=== PATIENT | male | born 1960 | race Caucasian/White ===

== ENCOUNTER 2017-08-07 13:32 | Emergency (ER) | payer OTHER ==
--- NOTE | 2017-08-07 14:06 | ERPHSYRPT ---
- History of Present Illness Time Seen by Provider: 08/07/17 13:56 Source: patient Exam Limitations: no limitations Patient Subjective Stated Complaint: Pt states "I cannot pee, I cannot poop. I realy hurt." Triage Nursing Assessment: Pt alert and oriented X 3, skin pwd Pt ambulates with a slow gait, able to speak in clear full sentences. PT abdomen is firm lower two quadrants, tender to touch. Physician History: This is a 57-year-old white male arrives with complaint of abdominal distention suprapubic pain symptoms for 1-1/2 days. He states he's been unable to urinate for one and a half days he thought he might be constipated because he could not urinate. He has no nausea no vomiting. Past medical history includes high blood pressure, enlarged prostate. Past surgical history includes hernia repair orthopedic surgery (anterior cruciate ligament reconstruction on the right and left ankle surgery. social history 3 beers a day no tobacco no drugs) Timing/Duration: today Severity: moderate Modifying Factors: Improves With: other (unable to urinate for one and a half days) Associated Symptoms: abdominal pain (suprapubic abdominal pain), No nausea, No vomiting, No shortness of breath, No heartburn, No diaphoresis, No cough, No chills, No chest pain, No fever, No headaches, No loss of appetite, No malaise, No rash, No syncope, No seizure, No weakness Allergies/Adverse Reactions: No Known Drug Allergies Allergy (Unverified 08/21/14 03:29) Home Medications: Finasteride 5 mg [Proscar 5 MG] 5 mg PO DAILY 11/11/12 [History] Hx Tetanus, Diphtheria Vaccination/Date Given: Yes Hx Influenza Vaccination/Date Given: No Hx Pneumococcal Vaccination/Date Given: No Immunizations Up to Date: Yes - Review of Systems Constitutional: No Fever, No Chills Eyes: No Symptoms Ears, Nose, & Throat: No Symptoms Respiratory: No Cough, No Dyspnea Cardiac: No Chest Pain, No Edema, No Syncope Abdominal/Gastrointestinal: Abdominal Pain (suprapubic abdominal pain), Constipation, No Nausea, No Vomiting, No Diarrhea, No Hematemesis, No Hematochezia, No Melena, No Dysphagia, No Appetite Changes Genitourinary Symptoms: Urinary Retention, No Frequency, No Hematuria, No Hesitancy, No Incontinence, No Urgency, No Flank Pain, No Testicle Pain, No Penile Discharge Musculoskeletal: No Back Pain, No Neck Pain Skin: No Rash Neurological: No Dizziness, No Focal Weakness, No Sensory Changes Psychological: No Symptoms Endocrine: No Symptoms All Other Systems: Reviewed and Negative - Past Medical History Pertinent Past Medical History: Yes Cardiac History: Hypertension Musculoskeletal History: Arthritis History: Other Psycho-Social History: Other Male Reproductive Disorders: Prostate Problems Other Medical History: ENLARGED PROSTATE - Past Surgical History Past Surgical History: Yes Gastrointestinal: Hernia Repair Musculoskeletal: Orthopedic Surgery - Social History Smoking Status: Never smoker Exposure to second hand smoke: Yes Drug Use: none Patient Lives Alone: Yes - Nursing Vital Signs Nursing Vital Signs: Initial Vital Signs Temperature 98.6 F 08/07/17 13:38 Pulse Rate 94 H 08/07/17 13:38 Respiratory Rate 16 08/07/17 13:38 Blood Pressure 154/86 08/07/17 13:38 O2 Sat by Pulse Oximetry 100 08/07/17 13:38 Pain Scale Pain Intensity 6 - Physical Exam General Appearance: moderate distress (arrives in moderate distress markedly improved and pain free after Almaraz placed) Eye Exam: PERRL/EOMI, eyes nml inspection Ears, Nose, Throat Exam: normal ENT inspection, TMs normal, pharynx normal, moist mucous membranes Neck Exam: normal inspection Respiratory Exam: normal breath sounds, lungs clear, No respiratory distress Cardiovascular Exam: regular rate/rhythm, normal heart sounds, normal peripheral pulses Gastrointestinal/Abdomen Exam: other (abdomen initially firm tender suprapubic region,soft, nontender nondistended positive bowel sounds after Alamraz placed) Back Exam: normal inspection, normal range of motion, No CVA tenderness, No vertebral tenderness Extremity Exam: normal inspection, normal range of motion, pelvis stable Neurologic Exam: alert, oriented x 3, cooperative, 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 tested, normal mood/affect, nml cerebellar function, nml station & gait, sensation nml, No motor deficits Skin Exam: normal color, warm, dry, No rash Lymphatic Exam: No adenopathy SpO2 Interpretation: normal (100%) SpO2: 100 Oxygen Delivery: Room Air - Course Nursing assessment & vital signs reviewed: Yes Ordered Tests: Active Orders 24 hr Category Date Time Status Almaraz [Catheter-[place] Almaraz] STAT Care 08/07/17 13:56 Active UA W/ MICROSCOPIC Stat Lab 08/07/17 14:00 Completed Lab/Rad Data: Laboratory Results 08/07/17 Range/Units 14:00 Ur Collection Type VOID Urine Color YELLOW (YELLOW) Urine Appearance CLEAR (CLEAR) Urine pH 5.0 (5-6) Ur Specific [place] 1.015 (1.005-1.025) Urine Protein NEGATIVE (Negative) Urine Ketones NEGATIVE (NEGATIVE) Urine Blood 50 (0-5) Crescencio/ul Urine Nitrite NEGATIVE (NEGATIVE) Urine Bilirubin NEGATIVE (NEGATIVE) Urine Urobilinogen NORMAL (0-1) mg/dL Ur Leukocyte Esterase NEGATIVE (NEGATIVE) Urine Microscopic RBC 10-15 (0-2) /HPF Ur Epithelial Cells FEW (FEW) /HPF Urine Bacteria RARE (NEGATIVE) /HPF Urine Mucus SLIGHT (NEGATIVE) /HPF Urine Culture Reflexed NO (NO) Urine Glucose NEGATIVE (NEGATIVE) mg/dL Specimen Received 08/07/17 1400 - Progress Progress: improved Progress Note: 08/07/17 14:05 57-year-old white male arrives with complaint of unable to urinate for one and a half days he arrives with complaint of suprapubic tenderness, abdomen is mildly firm on arrival and in moderate distress Almaraz was placed and patient immediately with relief now feeling markedly improved Almaraz drained out 1 L on placement. Patient has had a history of urinary retention he is due to see Dr. Iraheta on Tuesday, August 10. Will send off a urinalysis. Anticipate release with leg bag follow-up with Dr. Iraheta. 08/07/17 14:18 Will discharge patient patient doing well. - Departure Time of Disposition: 14:18 Departure Disposition: Home Clinical Impression: Suprapubic abdominal pain, Urinary (tract) obstruction Condition: Fair Critical Care Time: No Referrals: ANA GODFREY MD [Primary Care Provider] - Additional Instructions: Return home. Follow-up with Dr. Iraheta or your family doctor. Return for acute distress or for severe symptoms.
[2017-08-07 14:14] LABS: Appearance CLEAR (CLEAR); Bilirubin NEGATIVE (NEGATIVE); Blood 50 Ery/ul (0-5); Glucose NEGATIVE (NEGATIVE); Ketones NEGATIVE (NEGATIVE); Leukocyte Esterase NEGATIVE (NEGATIVE); Nitrite NEGATIVE (NEGATIVE); Protein,Urine Dip NEGATIVE (Negative); Specific Gravity 1.015 (1.005-1.025); Urobilinogen NORMAL mg/dL (0-1)
[2017-08-07 14:15] LABS: Bacteria RARE /HPF (NEGATIVE); Epithelial Cells FEW /HPF (FEW); Mucus SLIGHT /HPF (NEGATIVE)
[2017-08-07 14:28] VITALS: BP 128/78; PULSE 72; O2SAT 98
== END 2017-08-07 14:41 | disposition home or self-care (01) ==
LOC: ED 13:32
DX: R10.9 Unspecified abdominal pain (principal); N13.9 Obstructive and reflux uropathy, unspecified
CPT/HCPCS: 51702; 81000; 99284

== ENCOUNTER 2017-08-26 14:01 | Emergency (ER) | payer OTHER ==
[2017-08-26 14:13] VITALS: BP 147/87; PULSE 87; O2SAT 99
--- NOTE | 2017-08-26 14:32 | ERPHSYRPT ---
- History of Present Illness Time Seen by Provider: 08/26/17 14:18 Source: patient Exam Limitations: no limitations Patient Subjective Stated Complaint: Urinary retention Triage Nursing Assessment: Pt presents to the ED with complaints of urinary retention beginning today. Pt states hx of complaint. Pt states last saw urology approximately 2 weeks ago for similar complaint. Pt able to urinate on arrival, approximately 50mL output. No distress noted at this time, skin PWD. Physician History: The patient is a 57-year-old male complaining of difficulty urinating today. He feels like his bladder is full but only dribbles. He's had this kind of problem intermittently for several years. 3 weeks ago he came to the ER and had a catheter placed. He was placed for the same reason is today. The catheter was removed within a few days and he was alright until today. He hasn' t seen his urologist yet. He denies fever or chills. His past medical history is significant for BPH. Timing/Duration: today Activites at Onset: none Quality: pressure Onset Location: suprapubic Pain Radiation: none Severity of Pain-Max: moderate Severity of Pain-Current: moderate Modifying Factors: Improves With: urinating Associated Symptoms: other (urinary retention) Sexual intercourse history: non-contributory Allergies/Adverse Reactions: No Known Drug Allergies Allergy (Verified 08/26/17 14:14) Home Medications: Finasteride 5 mg [Proscar 5 MG] 5 mg PO DAILY 11/11/12 [History] Hx Tetanus, Diphtheria Vaccination/Date Given: Yes Hx Influenza Vaccination/Date Given: No Hx Pneumococcal Vaccination/Date Given: No Immunizations Up to Date: No - Past Medical History Pertinent Past Medical History: Yes Cardiac History: Hypertension Musculoskeletal History: Arthritis History: Other Psycho-Social History: Other Male Reproductive Disorders: Prostate Problems Other Medical History: ENLARGED PROSTATE - Past Surgical History Past Surgical History: Yes Gastrointestinal: Hernia Repair Musculoskeletal: Orthopedic Surgery - Social History Smoking Status: Never smoker Exposure to second hand smoke: No Drug Use: none Patient Lives Alone: No - Review of Systems Constitutional: No Fever, No Chills Eyes: No Symptoms Ears, Nose, & Throat: No Symptoms Respiratory: No Cough, No Dyspnea Cardiac: No Chest Pain, No Edema, No Syncope Abdominal/Gastrointestinal: Abdominal Pain (suprapubic) Genitourinary Symptoms: Hesitancy, Urinary Retention Musculoskeletal: No Back Pain, No Neck Pain Skin: No Rash Neurological: No Dizziness, No Focal Weakness, No Sensory Changes Psychological: No Symptoms Endocrine: No Symptoms Hematologic/Lymphatic: No Symptoms Immunological/Allergic: No Symptoms All Other Systems: Reviewed and Negative - Nursing Vital Signs Nursing Vital Signs: Initial Vital Signs Temperature 97.7 F 08/26/17 14:10 Pulse Rate 87 08/26/17 14:10 Respiratory Rate 16 08/26/17 14:10 Blood Pressure 147/87 08/26/17 14:10 O2 Sat by Pulse Oximetry 99 08/26/17 14:10 Pain Scale Pain Intensity 4 - Physical Exam General Appearance: no apparent distress, alert Eye Exam: PERRL/EOMI Ears, Nose, Throat Exam: pharynx normal, moist mucous membranes Neck Exam: normal inspection, supple Respiratory Exam: normal breath sounds, lungs clear Cardiovascular Exam: regular rate/rhythm, No edema Gastrointestinal/Abdomen Exam: tenderness (mild suprapubic tenderness ) Rectal Exam: not done Back Exam: normal inspection, No CVA tenderness Extremity Exam: normal inspection, normal range of motion, No pedal edema Neurologic Exam: alert, oriented x 3, cooperative, sensation nml, No motor deficits Skin Exam: normal color, warm, dry, No rash SpO2 Interpretation: normal SpO2: 99 Oxygen Delivery: Room Air Ordered Tests: Active Orders 24 hr Category Date Time Status Almaraz [Catheter-[place] Almaraz] STAT Care 08/26/17 15:01 Ordered UA W/RFX UR CULTURE Stat Lab 08/26/17 Completed Lab/Rad Data: Laboratory Results 08/26/17 Range/Units Unknown Ur Collection Type CCMS Urine Color YELLOW (YELLOW) Urine Appearance CLEAR (CLEAR) Urine pH 7.0 (5-6) Ur Specific [place] 1.010 (1.005-1.025) Urine Protein NEGATIVE (Negative) Urine Ketones NEGATIVE (NEGATIVE) Urine Blood NEGATIVE (0-5) Crescencio/ul Urine Nitrite NEGATIVE (NEGATIVE) Urine Bilirubin NEGATIVE (NEGATIVE) Urine Urobilinogen NORMAL (0-1) mg/dL Ur Leukocyte Esterase NEGATIVE (NEGATIVE) Urine Culture Reflexed NO (NO) Urine Glucose NEGATIVE (NEGATIVE) mg/dL Specimen Received 08-26-17 1455 - Progress Progress: improved Counseled pt/family regarding: lab results, diagnosis, need for follow-up - Departure Time of Disposition: 15:06 Departure Disposition: Home Clinical Impression: Urinary retention Condition: Stable Critical Care Time: No Referrals: ANA GODFREY MD [Primary Care Provider] - Additional Instructions: You have urinary retention. A Almaraz catheter was placed in the ER. Keep the Almaraz catheter in place until your urologist is seen.
[2017-08-26 14:56] LABS: Appearance CLEAR (CLEAR); Bilirubin NEGATIVE (NEGATIVE); Blood NEGATIVE Ery/ul (0-5); Glucose NEGATIVE (NEGATIVE); Ketones NEGATIVE (NEGATIVE); Leukocyte Esterase NEGATIVE (NEGATIVE); Nitrite NEGATIVE (NEGATIVE); Protein,Urine Dip NEGATIVE (Negative); Urobilinogen NORMAL mg/dL (0-1)
== END 2017-08-26 15:33 | disposition home or self-care (01) ==
LOC: ED 14:01
DX: R33.9 Retention of urine, unspecified (principal)
CPT/HCPCS: 51702; 81002; 99284

== ENCOUNTER 2018-08-06 07:09 | Emergency (ER) | payer BC, OTHER ==
[2018-08-06 07:25] VITALS: BP 181/96; PULSE 75; O2SAT 98
--- NOTE | 2018-08-06 07:26 | ERPHSYRPT ---
- History of Present Illness Time Seen by Provider: 08/06/18 07:22 Source: patient Exam Limitations: no limitations Physician History: unable to urinate till morning, no other complaints Timing/Duration: today Severity of Pain-Max: none Severity of Pain-Current: none Associated Symptoms: dysuria (dribbling), No nocturia, No polyuria Allergies/Adverse Reactions: No Known Drug Allergies Allergy (Verified 08/06/18 07:26) Home Medications: Finasteride 5 mg [Proscar 5 MG] 5 mg PO DAILY 11/11/12 [History] Hx Tetanus, Diphtheria Vaccination/Date Given: Yes Hx Influenza Vaccination/Date Given: No Hx Pneumococcal Vaccination/Date Given: No - Past Medical History Pertinent Past Medical History: Yes Cardiac History: Hypertension Musculoskeletal History: Arthritis History: Other Psycho-Social History: Other Male Reproductive Disorders: Prostate Problems Other Medical History: ENLARGED PROSTATE - Past Surgical History Past Surgical History: Yes Gastrointestinal: Hernia Repair Musculoskeletal: Orthopedic Surgery - Social History Smoking Status: Never smoker Exposure to second hand smoke: No Drug Use: none Patient Lives Alone: No - Review of Systems Constitutional: No Symptoms Eyes: No Symptoms Ears, Nose, & Throat: No Symptoms Respiratory: No Symptoms Cardiac: No Symptoms Abdominal/Gastrointestinal: No Symptoms Genitourinary Symptoms: Dysuria, Hesitancy, Incontinence, Urgency - Nursing Vital Signs Nursing Vital Signs: Initial Vital Signs Temperature 98.2 F 08/06/18 07:19 Pulse Rate 75 08/06/18 07:19 Respiratory Rate 18 08/06/18 07:19 Blood Pressure 181/96 08/06/18 07:19 O2 Sat by Pulse Oximetry 98 08/06/18 07:19 Pain Scale Pain Intensity 3 - Physical Exam General Appearance: no apparent distress Eye Exam: PERRL/EOMI Ears, Nose, Throat Exam: normal ENT inspection Neck Exam: normal inspection Respiratory Exam: normal breath sounds Cardiovascular Exam: regular rate/rhythm Gastrointestinal/Abdomen Exam: soft Male Genital Exam: normal genitalia, No urethral discharge, No prostate tenderness Back Exam: normal inspection Extremity Exam: normal inspection - Course Nursing assessment & vital signs reviewed: Yes Lab/Rad Data: Laboratory Results 08/06/18 Range/Units 07:43 Urine Color YELLOW (YELLOW) Urine Appearance CLEAR (CLEAR) Urine pH 7.0 (5-6) Ur Specific [place] 1.010 (1.005-1.025) Urine Protein NEGATIVE (Negative) Urine Ketones NEGATIVE (NEGATIVE) Urine Blood LARGE (0-5) Crescencio/ul Urine Nitrite NEGATIVE (NEGATIVE) Urine Bilirubin NEGATIVE (NEGATIVE) Urine Urobilinogen NEGATIVE (0-1) mg/dL Ur Leukocyte Esterase NEGATIVE (NEGATIVE) Urine WBC (Auto) 0-2 (0-5) /HPF Urine RBC (Auto) 26-50 (0-2) /HPF U Epithel Cells (Auto) NONE (FEW) /HPF Urine Bacteria (Auto) RARE (NEGATIVE) /HPF Urine Mucus (Auto) SLIGHT (NEGATIVE) /HPF Urine Culture Reflexed ORDERED SEPARATELY (NO) Urine Glucose NEGATIVE (NEGATIVE) mg/dL - Progress Progress: improved Progress Note: 08/06/18 07:24 levi catheter inserted with bag.patient symptoms relieved Counseled pt/family regarding: diagnosis, need for follow-up (with urologist Dr Iraheta) - Departure Departure Disposition: Home Clinical Impression: Urinary (tract) obstruction, Urinary retention Condition: Stable Critical Care Time: No Referrals: ANA GODFREY MD [Primary Care Provider] - JANETH IRAHETA [COURTESY STAFF] - Instructions: Urinary Retention (DC) Additional Instructions: Discharge/Care Plan KUMAR INFANTE was seen on 08/06/18 in the Emergency Room. The patient was counseled regarding Diagnosis,Lab results, Imaging studies, need for follow up and when to return to the Emergency Room. Prescriptions given: Discharge Note I have spoken with the patient and/or caregivers. I have explained the patient' s condition, diagnosis and treatment plan based on the information available to me at this time. I have answered the patient's and/or caregiver's questions and addressed any concerns. The patient and/or caregivers have as good understanding of the patient's diagnosis, condition and treatment plan as can be expected at this point. The vital signs have been stable. The patient's condition is stable and appropriate for discharge from the emergency department. The patient will pursue further outpatient evaluation with the primary care physician or other designated or consulting physician as outlined in the discharge instructions. The patient and/or caregivers are agreeable to this plan of care and follow-up instructions have been explained in detail. The patient and/or caregivers have received these instruction. The patient/and or caregivers are aware that any significant change in condition or worsening of symptoms should prompt an immediate return to this or the closest emergency department or call 911. Forms: Work/School Release Form
[2018-08-06 08:23] LABS: Appearance CLEAR (CLEAR); Bilirubin NEGATIVE (NEGATIVE); Blood LARGE Ery/ul (0-5); Glucose NEGATIVE (NEGATIVE); Ketones NEGATIVE (NEGATIVE); Leukocyte Esterase NEGATIVE (NEGATIVE); Mucus SLIGHT /HPF (NEGATIVE); Nitrite NEGATIVE (NEGATIVE); Protein,Urine Dip NEGATIVE (Negative); RBC 26-50 /HPF (0-2); Urobilinogen NEGATIVE mg/dL (0-1); WBC 0-2 /HPF (0-5)
[2018-08-06 08:24] LABS: Bacteria RARE /HPF (NEGATIVE)
== END 2018-08-06 08:02 | disposition home or self-care (01) ==
LOC: ED 07:09
DX: N13.9 Obstructive and reflux uropathy, unspecified (principal); R33.9 Retention of urine, unspecified; Z79.899 Other long term (current) drug therapy
CPT/HCPCS: 81001; 87086; 99283

== ENCOUNTER 2018-08-17 11:17 | Emergency (ER) | payer BC ==
[2018-08-17 11:28] VITALS: BP 152/88; PULSE 90; O2SAT 97
--- NOTE | 2018-08-17 11:53 | ERPHSYRPT ---
- History of Present Illness Time Seen by Provider: 08/17/18 11:49 Source: patient Exam Limitations: no limitations Patient Subjective Stated Complaint: Pt states "I cannot urinate again. I have not urinated since last night at 10." Triage Nursing Assessment: PT presented alert and oriented X 3, skin pwd. PT ambulates with an upright steady gait, able to speak in clear full sentences. PT in no apparent respiratory distress. Physician History: 58-year-old white male arrives with complaint of unable to urinate since 10:00 last night. Patient apparently unable to urinate since 10:00 last night he was seen on August 06 secondary to the same had a Almaraz placed he recently had it removed. He denies any other complaints. Past medical history includes high blood pressure past surgical history includes prostate problems patient also with history of arthritis and enlarged prostate. Past surgical history includes hernia repair, right leg anterior cruciate ligament and left ankle ORIF. Social history includes one to 2 beers a day denies tobacco or illicit drug use. Timing/Duration: yesterday (11:00 last night) Severity: moderate Modifying Factors: Improves With: nothing Associated Symptoms: abdominal pain (ssuprapubic discomfort), No nausea, No vomiting, No shortness of breath, No heartburn, No diaphoresis, No cough, No chest pain, No fever, No headaches, No loss of appetite, No malaise, No rash, No syncope, No seizure Allergies/Adverse Reactions: No Known Drug Allergies Allergy (Verified 08/06/18 07:26) Home Medications: Finasteride 5 mg [Proscar 5 MG] 5 mg PO DAILY 11/11/12 [History] Hx Tetanus, Diphtheria Vaccination/Date Given: Yes Hx Influenza Vaccination/Date Given: Yes Hx Pneumococcal Vaccination/Date Given: Yes Immunizations Up to Date: Yes - Review of Systems Constitutional: No Fever, No Chills Eyes: No Symptoms Ears, Nose, & Throat: No Symptoms Respiratory: No Cough, No Dyspnea Cardiac: No Chest Pain, No Edema, No Syncope Abdominal/Gastrointestinal: Abdominal Pain (suprapubic discomfort), No Nausea, No Vomiting, No Diarrhea, No Constipation, No Hematemesis, No Hematochezia, No Melena, No Dysphagia, No Appetite Changes Genitourinary Symptoms: Urinary Retention Musculoskeletal: No Back Pain, No Neck Pain Skin: No Symptoms, No Rash Neurological: No Dizziness, No Focal Weakness, No Sensory Changes Psychological: No Symptoms Endocrine: No Symptoms All Other Systems: Reviewed and Negative - Past Medical History Pertinent Past Medical History: Yes Cardiac History: Hypertension Musculoskeletal History: Arthritis History: Other Psycho-Social History: Other Male Reproductive Disorders: Prostate Problems Other Medical History: ENLARGED PROSTATE - Past Surgical History Past Surgical History: Yes Gastrointestinal: Hernia Repair Musculoskeletal: Orthopedic Surgery - Social History Smoking Status: Never smoker Exposure to second hand smoke: Yes Drug Use: none Patient Lives Alone: Yes - Nursing Vital Signs Nursing Vital Signs: Initial Vital Signs Temperature 97.6 F 08/17/18 11:24 Pulse Rate 90 08/17/18 11:24 Respiratory Rate 16 08/17/18 11:24 Blood Pressure 152/88 08/17/18 11:24 O2 Sat by Pulse Oximetry 97 08/17/18 11:24 Pain Scale Pain Intensity 4 - Physical Exam General Appearance: mild distress, alert Eye Exam: PERRL/EOMI, eyes nml inspection Ears, Nose, Throat Exam: normal ENT inspection, TMs normal, pharynx normal, moist mucous membranes Neck Exam: normal inspection, non-tender, supple, full range of motion Respiratory Exam: normal breath sounds, lungs clear, No respiratory distress Cardiovascular Exam: regular rate/rhythm, normal heart sounds, normal peripheral pulses, capillary refill <2 sec Gastrointestinal/Abdomen Exam: soft, normal bowel sounds, tenderness (slight suprapubic tenderness) Back Exam: normal inspection Extremity Exam: normal inspection, normal range of motion, pelvis stable Neurologic Exam: alert, oriented x 3, cooperative, 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 as tested, normal mood/affect, nml cerebellar function, nml station & gait, sensation nml, No motor deficits Skin Exam: normal color, warm, dry, No rash Lymphatic Exam: No adenopathy SpO2 Interpretation: normal (97%) SpO2: 97 Ordered Tests: Active Orders 24 hr Category Date Time Status Almaraz [Catheter-[place] Almaraz] STAT Care 08/17/18 11:58 Active IV Insertion STAT Care 08/17/18 11:53 Active CBC W DIFF Stat Lab 08/17/18 11:53 Ordered CMP Stat Lab 08/17/18 11:53 Ordered - Progress Progress: improved Progress Note: 08/17/18 12:02 58-year-old white male with history urinary retention who recently had Almaraz removed. Patient unable to urinate since last night 11 PM. Patient with suprapubic discomfort. Patient's nurse attempted to place a Almaraz and a coud catheter without success. I contacted Dr. Wylie at [facility] and he has accepted patient for transfer where he will be able to be seen by a urology specialist. - Departure Departure Disposition: Transfer ([facility]) Clinical Impression: Suprapubic abdominal pain, Urinary retention Condition: Fair Critical Care Time: No Referrals: ANA GODFREY MD [Primary Care Provider] -
[2018-08-17 12:06] LABS: Hematocrit 41.7 % (42-50); Hemoglobin 14.5 gm/dl (12.5-18.0); Mean Cell Volume 83.1 fl (78-100); Mean Corpuscular Hemoglobin 28.9 pg (26-32); Mean Corpuscular Hgb Concent. 34.8 g/dl (32-36); Mean Platelet Volume 9.6 fl (6-9.5); Platelet Count 223 K/mm3 (150-450); Red Blood Count 5.02 M/mm3 (4.1-5.6); White Blood Count 8.6 K/mm3 (4.0-10.5)
[2018-08-17 12:19] LABS: ALBUMIN 3.6 g/dL (3.5-5.0); ALKALINE PHOSPHATASE 66 U/L (38-126); ANION GAP 13.8 MEQ/L (5-15); BLOOD UREA NITROGEN 23 mg/dL (9-20); CHLORIDE 99 mmol/L (98-107); Calcium 9.1 mg/dL (8.4-10.2); Carbon Dioxide 27 mmol/L (22-30); Creatinine 1 0.88 mg/dL (0.66-1.25); Glucose 114 mg/dL (74-106); Potassium 3.5 mmol/L (3.5-5.1); SGOT/AST 22 U/L (17-59); SGPT/ALT 22 U/L (0-50); SODIUM 137 mmol/L (137-145); Total Protein 6.8 g/dL (6.3-8.2)
[2018-08-17 14:32] LABS: ATYPICAL LYMPHS 2 %; BAND 3 % (0.0-2.0); Eosinophil 1 % (0.00-3.0); Lymphocytes 8 % (24-44); Monocyte 7 % (0.0-12.0); Neutrophils 79 % (36.-66.); Total Cells Counted 100
[2018-08-17 14:33] LABS: Platelet Estimate NORMAL (NORMAL); Toxic Granulation 1+
== END 2018-08-17 12:10 | disposition short-term general hospital (02) ==
LOC: ED 11:17
DX: R10.9 Unspecified abdominal pain (principal); R33.9 Retention of urine, unspecified
CPT/HCPCS: 36415; 51702; 80053; 85025; 99284

== ENCOUNTER 2020-12-29 10:34 | Day surgery (SDC) | payer BC ==
--- NOTE | 2020-12-29 08:13 | HP ---
DATE OF SURGERY: 12/29/2020 HISTORY OF PRESENT ILLNESS: The patient is a 60-year-old who has prior history of right inguinal hernia repair ten or eleven years ago. He has a lump in the left inguinal area mainly bulges and now marked discomfort. He had prior right inguinal hernia repair. It is felt he has a left inguinal hernia at this time that would benefit from repair. He has history of laser prostate surgery in the past. PAST MEDICAL HISTORY: High blood pressure, arthritis, enlarge prostate, orthopedic surgery. PAST SURGICAL HISTORY: Laser prostate surgery in the past. Right inguinal hernia repair in the past. MEDICATIONS: Includes buspirone, Sildenafil, tadalafil, Aleve, ibuprofen, vitamin D, sumatriptan. ALLERGIES: NKDA. FAMILY HISTORY: Negative in regards to this problem. SOCIAL HISTORY: No smoking. Social alcohol use denies abuse. REVIEW OF SYSTEMS: Fourteen systems reviewed. No chest pain or palpitations. Other systems negative or noncontributory as above and per preadmission questionnaire. PHYSICAL EXAMINATION: GENERAL: No acute distress. HEENT: Sclerae nonicteric. NECK: No JVD. CHEST: Equal excursion, nonlabored breathing. CVS: Regular rate and rhythm. ABDOMEN: Soft. Left inguinal hernia on exam. No symptoms on the right. EXTREMITIES: No edema. NEURO: Alert, oriented, moving extremities symmetrically. PSYCH: Appropriate mood and affect. IMPRESSION: Left inguinal hernia on exam. No evidence of right recurrence currently. Discussed options of open versus robotic or laparoscopic repair. As he did quite well with open repair in the past, he prefers to go ahead and proceed with open repair of left inguinal hernia with mesh as an outpatient. He was shown the risk sheet, explained the procedure in detail but not limited to bleeding or infection, risk of hematoma or seroma formation, risk of swelling or firmness around the incision, risk of black, blue and bruising extensive down towards penis or scrotal area. Risk of hernia recurrence. Remote risk mesh infection possibly requiring removal, risk of aches, pains, burning or numbness lower abdomen, groin, thigh or scrotal area. Risk of sensory nerve irritation, scar formation or injury with 10 to 12% risk of chronic aches, pains, burning or numbness possibly interfering with sexual function from the pain standpoint. General risk of intermittent ache or twinge but not limited to. He understands and agrees with the planned procedure, will proceed with open repair left inguinal hernia with mesh as an outpatient.
[~2020-12-29 10:34] MED LIST: Lactated Ringers 1,000 ML IV ONE; Sensorcaine 0.25% 10 ML ONE
[2020-12-29] MEDS ORDERED: CEFAZOLIN 2 GM-D5W BAG** 2 GM/50 ML ML IV ONE (10:50)
[2020-12-29] MEDS ORDERED: Lactated Ringers 1,000 ML IV ONE (10:50)
[2020-12-29] MEDS ORDERED: Lactated Ringers 1,000 ML IV SCH (11:00)
[2020-12-29] MEDS ORDERED: CEFAZOLIN 2 GM-D5W BAG** 2 GM/50 ML ML IV SCH (11:00)
[2020-12-29] MEDS ORDERED: TORAdol 30 mg Injection ONE ×2 (11:51→11:54)
[2020-12-29] MEDS ORDERED: Zofran 4 MG/2 ML VIAL ONE (11:51)
[2020-12-29] MEDS ORDERED: Xylocaine-Mpf 2% 5 Ml Vial ONE (11:51)
[2020-12-29] MEDS ORDERED: SUBLIMAZE 100 MCG/2 ML ONE ×2 (11:51→15:16)
[2020-12-29] MEDS ORDERED: Decadron 4 MG INJ ONE ×2 (11:51→14:07)
[2020-12-29] MEDS ORDERED: DIPRIVAN 200 MG/20 ML IV ONE (11:51)
[2020-12-29] MEDS ORDERED: Versed 2 MG/2 ML Injection ONE (11:52)
[2020-12-29] MEDS ORDERED: Sensorcaine 0.25% 10 ML ONE (13:16)
[2020-12-29] MEDS ORDERED: EPINEPHRINE 1MG/ML AMP ONE (14:07)
[2020-12-29] MEDS ORDERED: Naropin 0.5% 30 ML VIAL ONE (14:07)
[2020-12-29] MEDS ORDERED: Hydromorphone 1 mg/ml Injection ONE (15:16)
[2020-12-29] MEDS ORDERED: TRANDATE 100 MG/20 ML MDV FOR DRIP IV ONE (15:19)
[2020-12-29 16:07] VITALS: O2SAT 97
[2020-12-29] MEDS ORDERED: APRESOLINE 20 MG/ML INJ IV PRN (16:10)
[2020-12-29 16:17] VITALS: PULSE 67
[2020-12-29] MEDS ORDERED: APRESOLINE 20 MG/ML INJ ONE (16:25)
[2020-12-29 16:32] VITALS: BP 153/91
--- NOTE | 2020-12-30 11:05 | OP ---
SURGERY DATE/TIME: 12/29/2020 1255 PREOPERATIVE DIAGNOSES: 1) Recurrent right inguinal hernia. 2) Left inguinal hernia. POSTOPERATIVE DIAGNOSIS: 1) Recurrent right inguinal hernia. 2) Left inguinal hernia. 3) Including bilateral cord lipomas. PROCEDURES: 1) Open repair right inguinal hernia. 2) Excision of small right cord lipoma. 3) Open repair of primary left inguinal hernia with mesh. 4) Excision of left cord lipoma. SURGEON: Dr. Tremayne Lewis. SUPERVISOR LOGGING: Deedee Kan, Medical Student III. ANESTHESIA: General. ESTIMATED BLOOD LOSS: Minimal. INDICATIONS: As noted above. Risks and benefits explained in detail and not limited to and consent was obtained. Initially left inguinal hernia was seen on the original office visit. He did not have a large right inguinal hernia at that time. He had prior right inguinal hernia repair twenty years or so ago. He now complains of a new bulge at the date of the procedure. It was felt he had a small, recurrent right inguinal hernia. He desired repair in the same setting. Consent was changed. DESCRIPTION OF PROCEDURE AND FINDINGS: The patient is taken to the operating room. General anesthesia induced. Abdomen and genitalia prepped and draped in usual sterile fashion. After official time out and no disagreement with planned procedure, a transverse incision made left inguinal area. Dissection carried down through Yimi fascia to the external oblique in the direction of its fibers towards external ring. The cord mobilized up off the pubic tubercle with a Venkat drain. Cremasteric fibers carefully . There is a large lateral cord lipoma carefully , high ligated with 3-0 Vicryl suture ligature and passed off. The moderate sized indirect hernia sac carefully isolated away from all of the cord structures opened and had some incarcerated colon and epiploica, this is carefully freed allowing the colon and epiploica to be reduced back down in the abdomen. Once this is accomplished the hernia sac had been dissected back to the internal ring and high ligated with 0 Prolene and passed off. Again the cord lipoma had been passed off. At this point the patient had a very weak, moderate sized direct hernia component that was imbricated downward with running 0 PDS. A 2 x 4 piece of mesh cut with keyhole cut is then cut to appropriate dimensions and secured to the fascia overlying pubic tubercle run along Hai's ligament along the shelving portion of the ileum and laterally past the internal ring. 0 Prolene used to transfix to the rectus fascia medially. 0 Prolene used to transfix the tails together laterally. The new internal ring was felt to be not too tight. 0 Vicryl used to transfix the aponeurosis and internal oblique superiorly avoiding the very large iliohypogastric nerve and is well visualized and protected. The visible ilioinguinal branch had been protected on the cord itself. The new internal ring was felt to be not too tight. The tails of the mesh were lying nice and flat on external oblique laterally. Good hemostasis noted. 0 Vicryl used to close the aponeurosis external oblique to the external ring. 3-0 Vicryl used to close the subcu. Small inferior epigastric arterial and venules had been ligated earlier with 2-0 Vicryl suture ligature and Vicryl tie. Yimi closed with 3-0 Vicryl. Subcu closed with 3-0 Vicryl. Skin closed with 4-0 Vicryl. Attention is then turned to the right inguinal area. Dissection carried down through the previous scar tissue as this is recurrent hernia, through the scarred up external oblique. It is carefully away from the cord. The cord is mobilized off pubic tubercle. The patient had ripped out a medial portion of his keyhole, appeared to have a direct component hernia. There did not appear to be any indirect component as the direct component medial to the inferior epigastric vessels this is carefully freed from surrounding structures carefully protecting the visible iliohypogastric nerve structure visible superiorly. This direct component of hernia is carefully imbricated downward to where it should have been. At this point it is felt the best repair was using Ethibond as his previous mesh was very well incorporated, it was felt the defect should be closed, closing the mesh itself. It was felt there was no benefit adding a new piece of mesh on top of this as the mesh itself was well incorporated. This hernia defect once preperitoneal fat had been reduced back down into the abdomen the defect is closed with 0 Ethibond interrupted fashion up from more normal sized internal ring with good hemostasis noted. External oblique closed with 0 Vicryl. Yimi closed with 3-0 Vicryl. Subcu closed with 3-0 Vicryl. Skin closed with 4-0 Vicryl. 0.25% Marcaine local had been injected along the skin incision back towards the origin of the inguinal nerve, back towards the anterior iliac spine bilaterally. Steri-Strips and sterile dressing applied. The patient tolerated the procedure well. There were no immediate complications.
== END 2020-12-29 17:07 | disposition home or self-care (01) ==
LOC: SDC 10:34
PROVIDERS: ATTEND Surgery
DX: K40.91 Unilateral inguinal hernia, without obstruction or gangrene, recurrent (principal); K40.90 Unilateral inguinal hernia, without obstruction or gangrene, not specified as recurrent; D17.6 Benign lipomatous neoplasm of spermatic cord; Z79.899 Other long term (current) drug therapy
CPT/HCPCS: 49505; 49520; 55520; 64488; 76937; C1781; 76942; 88302; J0171; J0360; J0690; J1100; J1170; J1885; J2250; J2405; J2704; J2795; J3010